=== PATIENT | female | born 1980 | race Caucasian/White ===

== ENCOUNTER → 2017-04-01 | Outpatient (REF) | payer OTHER | LOC: M SFHCLERA 14:18 | PROVIDERS: ATTEND Physician Assistant | DX: Z20.818 Contact with and (suspected) exposure to other bacterial communicable diseases (principal) ==

== ENCOUNTER → 2019-01-13 | Outpatient (REF) | payer OTHER | LOC: M LAB LCGH 13:24 | DX: Z12.4 Encounter for screening for malignant neoplasm of cervix (principal) ==